=== PATIENT | male | born 1970 | race Native Hawaiian/Other Pacific Islander ===

== ENCOUNTER 2021-05-11 12:44 | Emergency (ER) | payer BC ==
[~2021-05-11] VITALS: Ht 175.3 cm; Wt 99.8 kg
[2021-05-11 13:25] LABS: PLATELET COUNT 281 K/uL (142-355)
[2021-05-11 13:31] LABS: POTASSIUM 4.7 mmol/L (3.6-5.2); SODIUM 135 mmol/L (136-145)
[2021-05-11 13:43] LABS: PARTIAL THROMBOPLASTIN TIME 26.3 SECONDS (24.5-33.6)
[2021-05-11 15:00] VITALS: BP 101/69; TEMP 98.1
== END 2021-05-11 15:00 | disposition home or self-care (01) ==
LOC: ED 12:44
PROVIDERS: Hospitalist
DX: J06.9 Acute upper respiratory infection, unspecified (principal); U07.1 COVID-19
CPT/HCPCS: 80053; 82550; 83690; 83880; 84484; 85027; 85379; 85610; 85730; 93005; 96360; 96375; 99284; J1100